=== PATIENT | male | born 1955 | race Caucasian/White ===

== ENCOUNTER 2019-03-21 11:39 | Emergency (ER) | payer BC ==
[2019-03-21] MEDS ORDERED: Lidocaine Viscous Sol 2% 15 ml UD Cup ONE (12:35)
[2019-03-21] MEDS ORDERED: Lidocaine 4% Cream 5 GM TUBE w/ Tegaderm ONE (14:29)
[2019-03-21] MEDS ORDERED: Fleet Enema 133 ML BOT PR SCH (14:30)
== END 2019-03-21 15:27 | disposition home or self-care (01) ==
LOC: ERS 11:39
DX: K56.41 Fecal impaction (principal); K64.4 Residual hemorrhoidal skin tags; I10 Essential (primary) hypertension; F41.9 Anxiety disorder, unspecified
CPT/HCPCS: 96372; 99283; J0500